=== PATIENT | female | born 1990 | race African-American/Black ===

== ENCOUNTER 2017-09-21 12:23 | Emergency (ER) | payer MEDICAID ==
[~2017-09-21] VITALS: Ht 165.1 cm; Wt 59.0 kg
[2017-09-21] MEDS ORDERED: TESSALON PERLE100 MG ORAL (13:02)
[2017-09-21] MEDS ORDERED: LORATADINE10 M2 PO (13:02)
[2017-09-21] MEDS ORDERED: MEDROL4 M1 PO (13:02)
[2017-09-21] MEDS ORDERED: ALBUTEROL SULF8.5 GM INH (13:02)
--- NOTE | 2017-09-21 13:03 | Emergency Room Report ---
History of Present Illness General Chief Complaint: URI sxs Source: Patient Present Illness HPI 27 y/o female c/o URI sxs x 2.5 weeks. Assoc sxs include nasal congestion, sinus pressure pain, postnasal drip, cough, and chest congestion area. Patient states that she went to urgent care several days ago and was given Keflex which she is taking good compliance without adverse effects, and without relief of her symptoms. Patient is not taking any other medications for her symptoms. Patient states that her cough is worse when she is lying supine and at night. Patient denies any past medical history. Denies any current n/v/f/c/d, abd pain , back pain, neck pain, photophobia, phonophobia, CP, SOB or headache. Allergies: Coded Allergies: No Known Allergies (Unverified , 09/21/17) Patient History Past Medical History: none Past Surgical History: none Pertinent Family History: none Now: No Immunizations: UTD Reviewed Nursing Documentation: PMH: Agreed, PSxH: Agreed Review of Systems All Other Systems: negative except mentioned in HPI Physical Exam Vital Signs Date Time Temp Pulse Resp B/P (MAP) Pulse Ox O2 Delivery O2 Flow Rate FiO2 09/21/17 13:01 97.9 69 18 111/75 100 Room Air Sp02 EP Interpretation: reviewed, normal General Appearance: no apparent distress, alert, GCS 15, non-toxic Head: normocephalic, atraumatic Eyes: bilateral eye normal inspection, bilateral eye PERRL ENT: hearing grossly normal, normal pharynx, no angioedema, normal voice, TMs + canals normal, uvula midline, moist mucus membranes, nasal congestion Neck: full range of motion, supple/symm/no masses Respiratory: chest non-tender, lungs clear, normal breath sounds, speaking full sentences Cardiovascular #1: regular rate, rhythm, no edema Musculoskeletal: normal inspection, gait/station normal Neurologic: alert, oriented x3, responsive, motor strength/tone normal, sensory intact, speech normal Psychiatric: judgement/insight normal, memory normal, mood/affect normal, no suicidal/homicidal ideation Skin: normal color, no rash, warm/dry, well hydrated Lymphatic: no adenopathy Medical Decision Making PA Attestation Dr. [place] is my supervising physician with whom patient management has been discussed with. Diagnostic Impression: Primary Impression: Upper respiratory infection with cough and congestion ER Course Pt. presents to the ED c/o of cough and congestion Ddx considered but are not limited to bronchitis, pneumonia, viral upper respiratory tract infection Vital signs: are WNL, pt. is afebrile H&PE are most consistent with viral upper respiratory tract infection ORDERS: none required at this time, the diagnosis is clinical ED INTERVENTIONS: None required at this time. DISCHARGE: At this time pt. is stable for d/c to home. Will provide printed patient care instructions, and any necessary prescriptions. Care plan and follow up instructions have been discussed with the patient prior to discharge. Last Vital Signs Date Time Temp Pulse Resp B/P (MAP) Pulse Ox O2 Delivery O2 Flow Rate FiO2 09/21/17 13:01 97.9 69 18 111/75 100 Room Air Disposition: HOME, SELF-CARE Condition: Stable Scripts Benzonatate* (TESSALON PERLE*) 100 Mg Capsule 100 MG ORAL THREE TIMES A DAY for 10 Days, #30 PERLE Prov: CYNTHIA [email or web address].AJarrod 09/21/17 Loratadine (LORATADINE) 10 Mg Tablet 10 MG PO DAILY for 14 Days, #14 TAB Prov: CYNTHIA [email or web address].AJarrod 09/21/17 Albuterol Sulfate* (ALBUTEROL SULFATE MDI*) 8.5 Gm Hfa.aer.ad 2 PUFF INH Q4H, #1 INH 0 Refills Prov: CYNTHIA THOMPSON P.A. 09/21/17 Patient Instructions: Sinusitis, Adult, Upper Respiratory Infection, Adult Additional Instructions: Take medication as directed. Drink plenty of fluids which include Gatorade and water. Get plenty of rest. Avoid taking medications on an empty stomach. If you have cough avoid dairy and cold beverages. If you have a fever, headache or body aches please take [id number] tylenol/motrin/advil unless a prescription for these symptoms have been given. If your symptoms are worsening or you have shortness or breath, severe headaches or chest pain, please call 911 or go to the ER. CYNTHIA THOMPSON Sep 21, 2017 13:03
[2017-09-21 13:07] VITALS: BP 111/75
[2017-09-21 13:12] VITALS: BP 111/75
== END 2017-09-21 13:30 | disposition home or self-care (01) ==
LOC: EMR 13:16
DX: J06.9 Acute upper respiratory infection, unspecified (principal)
CPT/HCPCS: 99284